=== PATIENT | female | born 1975 | race Caucasian/White ===

== ENCOUNTER 2018-05-21 20:19 | Emergency (ER) | payer BC ==
[~2018-05-21] VITALS: Ht 162.6 cm; Wt 65.5 kg
[2018-05-21 20:26] VITALS: Ht 162.6 cm; Wt 65.5 kg
[2018-05-21] MEDS ORDERED: DICLOFENAC SODI50 MG PO (20:28)
[2018-05-21] MEDS ORDERED: NORCO 7.5/325 T1 TA1 PO (20:28)
[2018-05-21] MEDS ORDERED: FLOMAX0.4 MG PO (20:28)
[2018-05-21 21:14] LABS: BASOPHILS 0.1 % (0-2); EOSINOPHILS 0 % (0-7); HEMATOCRIT 38.4 % (36.0-48.0); HEMOGLOBIN 12.9 g/dL (12-16); IMMATURE GRANULOCYTES 0.1 % (0-5); LYMPHOCYTES 16.3 % (15-50); MCHC 33.6 g/dL (31.0-37.0); MCV 92.3 fL (80.0-100.0); MEAN PLATELET VOLUME 9.6 fL (7.4-10.4); MONOCYTES 5.1 % (2-11); NEUTROPHILS 78.4 % (40-80); PLATELET COUNT 260 10x3/uL (130-400); RBC 4.16 10x6/uL (4.00-5.40); RDW 12.8 % (11.5-14.5); WBC 10.2 10x3/uL (4.8-10.8)
[2018-05-21 21:15] LABS: APPEARANCE CLEAR (CLEAR); BILIRUBIN NEGATIVE (NEGATIVE); COLOR GREEN (YELLOW); GLUCOSE NEGATIVE (NEGATIVE); KETONE NEGATIVE (NEGATIVE); NITRITE NEGATIVE (NEGATIVE); PROTEIN NEGATIVE (NEGATIVE); SPECIFIC GRAVITY 1.025 (1.005-1.020); UROBILINOGEN NORMAL (NORMAL)
[2018-05-21 21:20] LABS: BACTERIA FEW /hpf (NONE SEEN)
[2018-05-21 21:25] LABS: ALBUMIN 3.8 g/dL (3.4-5.0); ALKALINE PHOSPHATASE 62 U/L (46-116); ALT (SGPT) 39 U/L (10-68); BILIRUBIN - TOTAL 0.15 mg/dL (0.2-1.3); CALC OSMOLALITY 285 mosm/kg (275-300); CALCIUM 9.2 mg/dL (8.5-10.1); CARBON DIOXIDE 25.8 mmol/L (21.0-32.0); CHLORIDE - SERUM 107 mmol/L (98-107); CREATININE - SERUM 0.8 mg/dL (0.6-1.3); GLUCOSE 119 mg/dL (74-106); POTASSIUM - SERUM 4.7 mmol/L (3.5-5.1); PROTEIN - SERUM 7.1 g/dL (6.4-8.2); SODIUM 142 mmol/L (136-145); UREA NITROGEN 17 mg/dL (7-18); eGFR NON AFRICAN AMERICAN 83 mL/min (90-120)
[2018-05-22] MEDS ORDERED: ZOFRAN8 MG PO (00:17)
[2018-05-22] MEDS ORDERED: TORADOL10 MG PO (00:17)
[2018-05-22 00:53] VITALS: BP 130/82
== END 2018-05-22 00:53 | disposition home or self-care (01) ==
LOC: D.ER 20:19
PROVIDERS: Family Medicine
DX: R10.9 Unspecified abdominal pain (principal)

== ENCOUNTER 2018-09-26 09:50 | Emergency (ER) | payer BC ==
[~2018-09-26] VITALS: Ht 162.6 cm; Wt 67.7 kg
[~2018-09-26 09:50] MED LIST: DICLOFENAC SODI50 MG PO; FLOMAX0.4 MG PO; NORCO 7.5/325 T1 TA1 PO; TORADOL10 MG PO; ZOFRAN8 MG PO
[2018-09-26 10:17] VITALS: Ht 162.6 cm; Wt 67.7 kg
[2018-09-26] MEDS ORDERED: ADDERALL 20 MG20 M1 PO (10:23)
[2018-09-26 11:04] LABS: HEMATOCRIT 40.8 % (36.0-48.0); LYMPHOCYTES 29.1 % (15-50); MCH 30.7 pg (26.0-34.0); MCHC 34.3 g/dL (31.0-37.0); MCV 89.5 fL (80.0-100.0); MEAN PLATELET VOLUME 8.8 fL (7.4-10.4); NEUTROPHILS 65.7 % (40-80); PLATELET COUNT 258 10x3/uL (130-400); RBC 4.56 10x6/uL (4.00-5.40); RDW 12.5 % (11.5-14.5); WBC 6.9 10x3/uL (4.8-10.8)
[2018-09-26 11:07] LABS: APTT 23.5 SECONDS (22.8-39.4); INR 0.92 (0.85-1.17); PROTIME 11.9 SECONDS (11.6-15.0)
[2018-09-26 11:13] LABS: ALBUMIN 4.1 g/dL (3.4-5.0); ALKALINE PHOSPHATASE 63 U/L (46-116); ALT (SGPT) 22 U/L (10-68); BILIRUBIN - TOTAL 0.27 mg/dL (0.2-1.3); CALC OSMOLALITY 276 mosm/kg (275-300); CARBON DIOXIDE 27.4 mmol/L (21.0-32.0); CHLORIDE - SERUM 103 mmol/L (98-107); CREATININE - SERUM 0.8 mg/dL (0.6-1.3); GLUCOSE 101 mg/dL (74-106); POTASSIUM - SERUM 4.3 mmol/L (3.5-5.1); PROTEIN - SERUM 7.5 g/dL (6.4-8.2); SODIUM 139 mmol/L (136-145); UREA NITROGEN 9 mg/dL (7-18); eGFR NON AFRICAN AMERICAN 83 mL/min (90-120)
[2018-09-26 11:23] LABS: CKMB 0.6 U/L (0.0-3.6); CREATINE KINASE 55 UL (21-215); PRO BNP 27 pg/mL (0-125); TROPONIN-I < 0.017 ng/mL (0.000-0.060)
[2018-09-26 16:15] VITALS: BP 132/96
== END 2018-09-26 16:15 | disposition home or self-care (01) ==
LOC: D.ER 09:50
PROVIDERS: Family Medicine
DX: R07.9 Chest pain, unspecified (principal); F90.9 Attention-deficit hyperactivity disorder, unspecified type; R06.02 Shortness of breath

== ENCOUNTER 2018-12-10 07:52 | Emergency (ER) | payer BC ==
[~2018-12-10] VITALS: Ht 162.6 cm; Wt 68.2 kg
[~2018-12-10 07:52] MED LIST changes: +ADDERALL 20 MG20 M1 PO
[2018-12-10 07:55] VITALS: Ht 162.6 cm; Wt 68.2 kg
[2018-12-10] MEDS ORDERED: BUSPAR5 MG PO (07:59)
[2018-12-10 08:40] LABS: HEMATOCRIT 38.3 % (36.0-48.0); HEMOGLOBIN 13.2 g/dL (12-16); MCHC 34.5 g/dL (31.0-37.0); PLATELET COUNT 250 10x3/uL (130-400); RDW 12.7 % (11.5-14.5); WBC 5.1 10x3/uL (4.8-10.8)
[2018-12-10 08:44] LABS: APTT 24.3 SECONDS (22.8-39.4); INR 0.95 (0.85-1.17); PROTIME 12.2 SECONDS (11.6-15.0)
[2018-12-10 08:45] LABS: D-DIMER-QUANTITATIVE < 0.27 ug/mLFEU (0.20-0.54)
[2018-12-10 08:46] LABS: HCG SERUM NEGATIVE (NEGATIVE)
[2018-12-10 08:50] LABS: ALBUMIN 4.1 g/dL (3.4-5.0); ALKALINE PHOSPHATASE 50 U/L (46-116); ALT (SGPT) 27 U/L (10-68); BILIRUBIN - TOTAL 0.35 mg/dL (0.2-1.3); CALC OSMOLALITY 280 mosm/kg (275-300); CALCIUM 8.8 mg/dL (8.5-10.1); CARBON DIOXIDE 26.4 mmol/L (21.0-32.0); CHLORIDE - SERUM 105 mmol/L (98-107); CREATININE - SERUM 0.8 mg/dL (0.6-1.3); GLUCOSE 105 mg/dL (74-106); POTASSIUM - SERUM 3.7 mmol/L (3.5-5.1); PROTEIN - SERUM 7.4 g/dL (6.4-8.2); SODIUM 140 mmol/L (136-145); UREA NITROGEN 17 mg/dL (7-18); eGFR NON AFRICAN AMERICAN 83 mL/min (90-120)
[2018-12-10 08:58] LABS: CKMB 0.6 U/L (0.0-3.6); CREATINE KINASE 74 UL (21-215); PRO BNP 59 pg/mL (0-125)
[2018-12-10 08:59] LABS: TROPONIN-I < 0.017 ng/mL (0.000-0.060)
[2018-12-10] MEDS ORDERED: CYCLOBENZAPRINE10 MG PO (09:45)
[2018-12-10] MEDS ORDERED: IBUPROFEN800 MG PO (09:45)
[2018-12-10] MEDS ORDERED: ACETAMINOPHEN500 M1 PO (09:45)
[2018-12-10 10:48] VITALS: BP 140/94
== END 2018-12-10 10:48 | disposition home or self-care (01) ==
LOC: D.ER 07:52
PROVIDERS: Family Medicine
DX: M54.6 Pain in thoracic spine (principal)

== ENCOUNTER → 2018-12-12 14:19 | Outpatient (CLI) | payer BC | END | disposition home or self-care (01) | LOC: D.RAD 14:19 | DX: S51.012A Laceration without foreign body of left elbow, initial encounter (principal); W19.XXXA Unspecified fall, initial encounter ==